=== PATIENT | male | born 1975 | race Caucasian/White ===

== ENCOUNTER 2016-11-01 12:36 | Emergency (ER) | payer SELFPAY ==
[~2016-11-01] VITALS: Ht 172.7 cm; Wt 60.0 kg
[2016-11-01 12:37] VITALS: BP 137/83; PULSE 89; RESP 14; TEMP 97.4; O2SAT 97
[2016-11-01] MEDS ORDERED: IBUP400T20 PO (12:56)
[2016-11-01] MEDS ORDERED: DICL75TA PO (13:29)
[2016-11-01] MEDS ORDERED: AMOX875T PO (13:29)
--- NOTE | 2016-11-01 13:34 | PD ---
HPI Chief Complaint: Oral / Dental Pain or Problem Time Seen by Provider: 13:30 Travel History International Travel<30 days: No Contact w/Intl Traveler<30days: No Traveled to known affect area: No History of Present Illness HPI 41-year-old male that presents to the ED for evaluation of left sided tooth abscess. Per patient she's had this for about 2 days now. Per patient he noticed yesterday but he had more swelling on his cheek. She noted that he had some pain around his cheek area and noticed that insight his left upper gum he has an area of swelling that is tender to touch. Patient denies any drainage. Patient states having tooth abscess in the past. Per patient he has bad teeth he believes that this is the cause of it. Per patient the pain is not severe but is 6 out of 10. He does tell me that he had a heart condition when he was younger and she was told that if he ever gets an infection on his teeth he needs to get them checked. He has been taking anti-inflammatories over-the- counter with minimal relief. He denies any chest pain or shortness of breath. No fevers chills or sweats. Denies any other medical problems. Has no dentist in the area. Pain does not radiate. Pain stays in the area of the abscess. Nothing makes the pain better or worse. Per patient the swelling on the face seems to have improved today with the abscess itself still there. PFSH Past Medical History Cardiovascular Problems: Yes (heart condition as a child) Social History Alcohol Use: Yes Tobacco Use: Yes Substance Use: No Allergies-Medications (Allergen,Severity, Reaction): Coded Allergies: No Known Allergies (Unverified , 11/01/16) Reported Meds & Prescriptions Reported Meds & Active Scripts Active Reported Ibuprofen 400 Mg Tab 400 Mg PO Q6H PRN Review of Systems General / Constitutional: No: Fever, Chills, Weight Gain, Weight Loss, Other Eyes: No: Diploplia, Blurred Vision, Photophobia, Drainage, Redness, Foreign Body Sensation, Pain, Tearing, Blind Spots, Visual changes, Blindness, Other HENT: Positive: Dental Difficulties, No: Headaches, Vertigo, Lightheadedness, Sore Throat, Rhinitis, Rhinorrhea, Congestion, Nosebleed, Neck Stiffness, Neck Pain, Masses, Gingival Bleeding, Ear Discharge, Earache, Other Cardiovascular: No: Chest Pain or Discomfort, Palpitations, Irregular Rhythm, Tachycardia, Diaphoresis, Syncope, Dyspnea on exertion, Varicosities, Edema, Cyanosis, Varicosities, Phlebitis, Claudication, Other Respiratory: No: Cough, Shortness of Breath, Wheezing, Sneezing, Orthopnea, Hemoptysis, Stridor, Night Sweats, Pleuritic Pain, Other Gastrointestinal: No: Nausea, Vomiting, Diarrhea, Abdominal Pain, Hematemesis, Hematochezia, Constipation, Changes in Bowel Habits, Indigestion, Dysphagia, Loss of Appetite, Other Genitourinary: No: Urgency, Frequency, Dysuria, Nocturia, Hematuria, Decreased Urinary Output, Oliguria, Hesitancy, Dribbling, Incontinence, Pelvic Pain, Flank Pain, Dyspareunia, Discharge, Dysmenorrhea, Menorrhagia, Metorrhagia, Vaginal Bleeding, Other Musculoskeletal: No: Myalgias, Arthralgias, Limited ROM, Weakness, Cramping, Edema, Pain, Atrophy, Other Skin: No Rash, No Itching, No Dryness, No Lumps, No Hives, No Change in Pigmentation, No Change in nails, No Alopecia, No Lesions, No Breast Lumps, No Breast Tenderness, No Breast Swelling, No Other Neurologic: No: Weakness, Dizziness, Syncope, Focal Abnormalities, Coordination Problem, Tremor, Ataxia, Headache, Change in Mentation, Slurred Speech, Paresthesia, Incontinence, Seizures, Sensory Disturbance, Other Psychiatric: No: Anxiety, Depression, Suicidal Ideations, Disorder of Thought, Mood Disorder, Substance Abuse, Homicidal Ideation, Other Endocrine: No: Heat Intolerance, Cold Intolerance, Polyuria, Polydipsia, Other Hematologic/Lymphatic: No: Easy Bruising, Lymph Node Enlargement, Other Physical Exam Narrative GENERAL: SKIN: Warm and dry. HEAD: Atraumatic. Normocephalic. EYES: Pupils equal and round. No scleral icterus. No injection or drainage. ENT: No nasal bleeding or discharge. Mucous membranes pink and moist. Tongue is midline. No uvula deviation. Dental: Patient has what appears to be a very small less than 1 cm developing abscess on the left upper front gumline. Slightly tender to touch but no obvious purulence noted. Patient does have bad dentition with some cavities but no sign of trauma. No obvious lymphadenopathy noted. Pain is reproducible with touch in the same mass. Patient does have some soft tissue swelling to the left side of the face. NECK: Trachea midline. No JVD. CARDIOVASCULAR: Regular rate and rhythm. RESPIRATORY: No accessory muscle use. Clear to auscultation. Breath sounds equal bilaterally. GASTROINTESTINAL: Abdomen soft, non-tender, nondistended. Hepatic and splenic margins not palpable. MUSCULOSKELETAL: Extremities without clubbing, cyanosis, or edema. No obvious deformities. NEUROLOGICAL: Awake and alert. No obvious cranial nerve deficits. Motor grossly within normal limits. Five out of 5 muscle strength in the arms and legs. Normal speech. PSYCHIATRIC: Appropriate mood and affect; insight and judgment normal. Data Data Last Documented VS Vital Signs Date Time Temp Pulse Resp B/P Pulse Ox O2 Delivery O2 Flow Rate FiO2 11/01/16 12:37 97.4 89 14 137/83 97 Room Air MDM Medical Decision Making Medical Screen Exam Complete: Yes Emergency Medical Condition: Yes Medical Record Reviewed: Yes Differential Diagnosis Dental abscess versus dental infection versus dentalgia Narrative Course 41-year-old male that presents to the ED for evaluation of dental abscess. Patient was properly examined and was found to have signs and symptoms consistent with appears to be a small dental abscess. I do not see any need for drainage at this time as I do not feel any purulence or fluctuance. I do recommend starting treatment with anti-inflammatories and antibiotics. He agrees with this. Patient was given a prescription for diclofenac sodium and amoxicillin. Given dental referral. Told to follow with PCP. See ED for any worsening symptoms. Ice or warm compresses. Diagnosis Primary Impression: Dental abscess Patient Instructions: General Instructions Additional Instructions: Take medications as prescribed. Follow-up with PCP. See ED for any worsening symptoms. Do not drink or drive while taking pain medication. Apply ice or heat as needed for pain Med/Other Pt SpecificInfo: Prescription(s) given Scripts Amoxicillin 875 Mg [id number] Mg PO BID 10 Days Prov:Claudette Barroso MD 11/01/[address] 75 Mg Tabdr75 Mg PO BID PRN (PAIN SCALE 1 TO 10) #20 TAB Prov:Claudette Barroso MD 11/01/16 Disposition: 01 DISCHARGE HOME Condition: Stable Torres Ch Nov 01, 2016 13:34
== END 2016-11-01 13:51 | disposition home or self-care (01) ==
LOC: NEPB 12:36
DX: K04.7 Periapical abscess without sinus (principal); Z72.0 Tobacco use
CPT/HCPCS: 99282

== ENCOUNTER 2017-09-21 11:51 | Emergency (ER) | payer SELFPAY ==
[~2017-09-21] VITALS: Ht 172.7 cm; Wt 63.6 kg
[~2017-09-21 11:51] MED LIST: AMOX875T PO; DICL75TA PO; IBUP1TAB5 PO
[2017-09-21 11:52] VITALS: BP 162/80; PULSE 68; RESP 16; TEMP 98.2; O2SAT 100
[2017-09-21 13:00] VITALS: O2SAT 99
[2017-09-21] MEDS ORDERED: SODIUM CHLORIDE 0.9% FLUSH 10 ML FLUSH IVF PRN (13:00)
[2017-09-21] MEDS ORDERED: SODIUM CHLORID 0.9% 500 ML INJ 500 ML IV ONE (13:00)
[2017-09-21 13:11] LABS: AUTOMATED NEUTROPHIL # 4.1 TH/MM3 (1.8-7.7); BASOPHIL % 0.8 % (0.0-2.0); EOSINOPHIL % 0.4 % (0.0-4.0); HEMATOCRIT 41.9 % (39.0-51.0); HEMOGLOBIN 14.2 GM/DL (13.0-17.0); LYMPH % 23.2 % (9.0-44.0); LYMPHOCYTE # 1.4 TH/MM3 (1.0-4.8); MEAN CELL VOLUME 92.1 FL (80.0-100.0); MEAN CORPUSCULAR HEMOGLOBIN 31.3 PG (27.0-34.0); MEAN PLATELET VOLUME 9.3 FL (7.0-11.0); MONO % 7.2 % (0.0-8.0); MONOCYTE # 0.4 TH/MM3 (0-0.9); NEUT % 68.4 % (16.0-70.0); PLATELET COUNT 169 TH/MM3 (150-450); RED BLOOD COUNT 4.55 MIL/MM3 (4.50-5.90); RED CELL DISTRIBUTION WIDTH 14.3 % (11.6-17.2); WHITE BLOOD COUNT 5.9 TH/MM3 (4.0-11.0)
[2017-09-21 13:25] LABS: INTERNATIONAL NORMALIZED RATIO 1.2 RATIO; PROTHROMBIN TIME - PATIENT 11.7 SEC (9.8-11.6)
[2017-09-21 13:34] LABS: ALT (GPT) 24 U/L (12-78)
[2017-09-21 13:36] LABS: ALBUMIN 3.8 GM/DL (3.4-5.0); AST (GOT) 24 U/L (15-37); BICARBONATE 23.3 MEQ/L (21.0-32.0); BLOOD UREA NITROGEN 12 MG/DL (7-18); CALCIUM 8.7 MG/DL (8.5-10.1); CHLORIDE 108 MEQ/L (98-107); CREATININE 0.89 MG/DL (0.60-1.30); GLOMERULAR FILTRATION RATE 93 ML/MIN (>89); GLUCOSE,RANDOM 71 MG/DL (74-106); MAGNESIUM 1.8 MG/DL (1.5-2.5); SODIUM (NA) 140 MEQ/L (136-145)
[2017-09-21 13:38] LABS: ALKALINE PHOSPHATASE 52 U/L (45-117); TOTAL BILIRUBIN ADULT 1.7 MG/DL (0.2-1.0); TOTAL PROTEIN 7.1 GM/DL (6.4-8.2); TROPONIN I LESS THAN 0.02 NG/ML (0.02-0.05)
--- NOTE | 2017-09-21 14:16 | RADRPT ---
EXAM DATE/TIME: 09/21/2017 13:22 [facility] COMPARISON: No previous studies available for comparison. INDICATIONS : Chest pain and shortness of breath. MEDICAL HISTORY : None. SURGICAL HISTORY : CABG. ENCOUNTER: Initial ACUITY: 1 day PAIN SCORE: 5/10 LOCATION: Bilateral chest FINDINGS: The heart is mildly prominent. The pulmonary vascular pattern is normal. The lungs are clear. CONCLUSION: 1. Mild cardiomegaly. 2. No acute focal pulmonary infiltrate or pulmonary vascular congestion. Erasmo Dubois MD on September 21, 2017 at 14:13 Board Certified Radiologist. This report was verified electronically.
--- NOTE | 2017-09-21 14:28 | PD ---
HPI Chief Complaint: Chest Pain Time Seen by Provider: 12:58 Travel History International Travel<30 days: No Contact w/Intl Traveler<30days: No Traveled to known affect area: No History of Present Illness HPI So 42 old man presents emergent from complaining of some abdominal pain. Chest pain. He reports he was throwing laundry into a large walking machine at work when he got pain in his chest. He started breathing heavy and had numbness tingling in his hands and around his mouth, and some cramping in his hands. This is happened to him in the past. No history of heart disease. He otherwise had been feeling generally well and healthy. History Past Medical History Narrative Medical History of congenital heart disease Tetanus Vaccination: > 5 Years Influenza Vaccination: No Social History Alcohol Use: No Tobacco Use: No Allergies-Medications (Allergen,Severity, Reaction): Coded Allergies: No Known Allergies (Unverified , 11/01/16) Reported Meds & Prescriptions Reported Meds & Active Scripts Active No Active Prescriptions or Reported Medications Review of Systems Except as stated in HPI: all other systems reviewed are Neg Physical Exam Narrative GENERAL: Well-appearing 42 old man, no acute distress. SKIN: Focused skin assessment warm/dry. HEAD: Atraumatic. Normocephalic. EYES: Pupils equal and round. No scleral icterus. No injection or drainage. ENT: No nasal bleeding or discharge. Mucous membranes pink and moist. NECK: Trachea midline. No JVD. CARDIOVASCULAR: Regular rate and rhythm. No murmur appreciated. RESPIRATORY: No accessory muscle use. Clear to auscultation. Breath sounds equal bilaterally. GASTROINTESTINAL: Abdomen soft, non-tender, nondistended. Hepatic and splenic margins not palpable. MUSCULOSKELETAL: No obvious deformities. No clubbing. No cyanosis. No edema. NEUROLOGICAL: Awake and alert. No obvious cranial nerve deficits. Motor grossly within normal limits. Normal speech. PSYCHIATRIC: Appropriate mood and affect; insight and judgment normal. Data Data Last Documented VS Vital Signs Date Time Temp Pulse Resp B/P (MAP) Pulse Ox O2 Delivery O2 Flow Rate FiO2 09/21/17 13:00 99 Room Air 09/21/17 13:00 09/21/17 12:15 67 20 09/21/17 11:52 98.2 Orders Orders Electrocardiogram (09/21/17 12:59) Complete Blood Count With Diff (09/21/17 12:59) Comprehensive Metabolic Panel (09/21/17 12:59) Magnesium (Mg) (09/21/17 12:59) Prothrombin Time / Inr (Pt) (09/21/17 12:59) Act Partial Throm Time (Ptt) (09/21/17 12:59) Troponin I (09/21/17 12:59) Chest, Single Ap (09/21/17 12:59) Ecg Monitoring (09/21/17 12:59) Bilateral Bp Monitoring (09/21/17 12:59) Iv Access Insert/Monitor (09/21/17 12:59) Oximetry (09/21/17 12:59) Oxygen Administration (09/21/17 12:59) Sodium Chloride 0.9% Flush (Ns Flush) (09/21/17 13:00) Sodium Chlorid 0.9% 500 Ml Inj (Ns 500 M (09/21/17 13:00) Labs Laboratory Tests Test 09/21/17 12:50 White Blood Count 5.9 TH/MM3 Red Blood Count 4.55 MIL/MM3 Hemoglobin 14.2 GM/DL Hematocrit 41.9 % Mean Corpuscular Volume 92.1 FL Mean Corpuscular Hemoglobin 31.3 PG Mean Corpuscular Hemoglobin Concent 34.0 % Red Cell Distribution Width 14.3 % Platelet Count 169 TH/MM3 Mean Platelet Volume 9.3 FL Neutrophils (%) (Auto) 68.4 % Lymphocytes (%) (Auto) 23.2 % Monocytes (%) (Auto) 7.2 % Eosinophils (%) (Auto) 0.4 % Basophils (%) (Auto) 0.8 % Neutrophils # (Auto) 4.1 TH/MM3 Lymphocytes # (Auto) 1.4 TH/MM3 Monocytes # (Auto) 0.4 TH/MM3 Eosinophils # (Auto) 0.0 TH/MM3 Basophils # (Auto) 0.0 TH/MM3 CBC Comment DIFF FINAL Differential Comment Prothrombin Time 11.7 SEC Prothromb Time International Ratio 1.2 RATIO Activated Partial Thromboplast Time 25.3 SEC Blood Urea Nitrogen 12 MG/DL Creatinine 0.89 MG/DL Random Glucose 71 MG/DL Total Protein 7.1 GM/DL Albumin 3.8 GM/DL Calcium Level 8.7 MG/DL Magnesium Level 1.8 MG/DL Alkaline Phosphatase 52 U/L Aspartate Amino Transf (AST/SGOT) 24 U/L Alanine Aminotransferase (ALT/SGPT) 24 U/L Total Bilirubin 1.7 MG/DL Sodium Level 140 MEQ/L Potassium Level 3.2 MEQ/L Chloride Level 108 MEQ/L Carbon Dioxide Level 23.3 MEQ/L Anion Gap 9 MEQ/L Estimat Glomerular Filtration Rate 93 ML/MIN Troponin I LESS THAN 0.02 NG/ML MDM Medical Decision Making Medical Screen Exam Complete: Yes Emergency Medical Condition: Yes Interpretation(s) My review of EKG: Normal sinus rhythm at a rate of 64, normal axis, normal intervals, no acute ischemia. LABS: CBC is unremarkable. CMP generally unremarkable. Total bili is a little bit elevated 1.7. Troponin negative. Coags unremarkable. Chest x-ray: Mild cardiomegaly. No acute focal pulmonary infiltrate. Differential Diagnosis Chest wall pain, hyperventilation, ACS, PE, CHD, other Narrative Course Medical decision making INITIAL 42 old man presents emergent from complaining of abdominal pain. Chest pain. Looks well. Symptoms started when he was throwing heavy bags laundry into the laundry machine. I think is likely musculoskeletal. He has some hyperventilation symptoms associated with it. EKG is unremarkable. Total bili is a little bit elevated but without any other evidence of liver disease. No abdominal tenderness. Possibly Gilbert's disease. Nonetheless, safe for outpatient discharge and follow-up. Diagnosis Primary Impression: Chest pain Additional Instructions: Follow-up with your primary doctor for not completely well in the next 3-5 days. Return to the emergency department for any worsening chest pain, trouble breathing, or any other new or worsening symptoms. Med/Other Pt SpecificInfo: No Change to Meds Scripts No Active Prescriptions or Reported Meds Disposition: 01 DISCHARGE HOME Condition: Stable Andre Manuel MD Sep 21, 2017 14:28
--- NOTE | 2017-09-24 00:06 | EKG ---
Date Performed: 09/21/2017 Time Performed: 12:10:44 PTAGE: 42 years EKG: Sinus rhythm NORMAL ECG NO PREVIOUS TRACING DOCTOR: Braxton León Interpretating Date/Time 09/24/2017 00:04:30
== END 2017-09-21 15:08 | disposition home or self-care (01) ==
LOC: NEPC 11:51
DX: R07.9 Chest pain, unspecified (principal); R10.9 Unspecified abdominal pain; R20.0 Anesthesia of skin; R25.2 Cramp and spasm
CPT/HCPCS: 71045; 80053; 83735; 84484; 85025; 85610; 85730; 93005; 99285; J7040